=== PATIENT | female | born 1995 | race Caucasian/White ===

== ENCOUNTER 2020-10-25 09:01 | Observation (INO) ==
[2020-10-25] MEDS ORDERED: KETOROLAC TROMETHAMINE 15 MG/ML VIAL IV STA (09:47)
[2020-10-25] MEDS ORDERED: SODIUM CHLORIDE 0.9% 1000ML 1,000 ML IV STA (09:47)
[2020-10-25 09:57] LABS: Basophils # (auto) 0.02 K/uL (0-0.2); Basophils % (auto) 0.2 %; Eosinophils # (auto) 0.01 K/uL (0-0.5); Eosinophils % (auto) 0.1 %; Hematocrit (blood only) 39.4 % (37-47); Immature Granulocytes # (auto) 0.01 K/uL (0.00-0.02); Immature Granulocytes % (auto) 0.1 %; Lymphocytes # (auto) 0.94 K/uL (1.2-3.4); Lymphocytes % (auto) 10.2 %; Mean Corpuscular Hemoglobin 28.7 pg (25-34); Mean Platelet Volume 9.8 fL (7.4-10.4); Monocytes # (auto) 0.39 K/uL (0.11-0.59); Monocytes % (auto) 4.2 %; Neutrophils # (auto) 7.87 K/uL (1.4-6.5); Neutrophils % (auto) 85.2 %; Platelet Count 376 K/uL (130-400); RDW Coefficient of Variation 14.1 % (11.5-14.5); RDW Standard Deviation 44.9 fL (36.4-46.3); Red Blood Count 4.53 M/uL (4.2-5.4); White Blood Count 9.24 K/uL (4.8-10.8)
--- NOTE | 2020-10-25 09:59 | Emergency Department Note ---
Impression & Plan Acute calculous cholecystitis ED Provider Note CHIEF COMPLAINT: Right upper abdominal pain HISTORY OF PRESENTING ILLNESS: This is a 25-year-old female who presents to the emergency department complaining of right upper abdominal pain that started this morning about 3 AM. She states the pain has been constant, sharp and stabbing, radiates to her right middle back, and she rates the pain 9/10. She did try Tylenol and ibuprofen with minimal relief. She states that she had nausea and vomiting with the pain this morning, but this has resolved. She denies any fevers or chills. She notes that she has been having an ongoing issue with right upper abdominal pain for the past 4-5 months, when she was first evaluated for this she states that she was told she has gallstones and was recommended to have surgery for this. She states that she has been waiting on the surgery because she has been trying to lose weight and control her diet to see if this would help. She states that eating fatty foods seems to flareup the pain and last night she had tater tots from [facility], she believes this is what caused her symptoms today. She denies any chest pain, chest tightness, shortness of margaux th, dizziness or syncope. She denies any leg pain or swelling. She denies any history of kidney stones or kidney infections and has not had any urinary symptoms. She denies any diarrhea or constipation. REVIEW OF SYSTEMS: A complete 10 point review of systems was reviewed with the patient with pertinent positives and negatives as per history of present illness. All else were negative. PAST MEDICAL HISTORY: No significant past medical or surgical history SOCIAL HISTORY: Lives at home, she is a [email or web address] student, denies tobacco use, occasional alcohol use, denies drug use ALLERGIES: No known allergy PHYSICAL EXAM: CONSTITUTIONAL: Pleasant and cooperative. Nontoxic-appearing and no acute distress. Mildly dehydrated, but otherwise well appearing and well nourished. HEENT: Normocephalic, atraumatic. Pharynx normal. Tacky mucous membranes. NECK: Supple, full active range of motion without discomfort. RESPIRATORY: Clear to auscultation bilaterally with no wheezing, crackles, rho nchi or stridor. Equal expansion bilaterally. CARDIOVASCULAR: Regular rate and rhythm with no murmurs, rubs or gallops. Normal peripheral perfusion. No edema. GASTROINTESTINAL: Tender to palpation in the right upper quadrant, abdomen is otherwise nontender, soft and nondistended. No palpable masses or HSM. Bowel sounds present in all quadrants. No CVA tenderness bilaterally. MUSCULOSKELETAL: Full range of motion of all joints without discomfort. INTEGUMENTARY: No rash or other significant dermatologic conditions noted. NEUROLOGIC: Alert and oriented X 4 with normal affect. Normal strength and sensation in all 4 extremities. Normal speech. Normal gait observed. ED COURSE AND MEDICAL DECISION MAKING: CC: Patient presenting with complaint of right upper quadrant abdominal pain, nausea and vomiting DIFFERENTIAL DIAGNOSIS: Includes, but not limited to cholecystitis, cholelithiasis, pancreatitis, gastroenteritis, gastritis, peptic ulcer disease, GERD, IBD, IBS, small bowel obstruction, among others. INTERPRETATION OF LABS: No leukocytosis, no anemia, normal platelets, no signifi cant electrolyte abnormalities, normal renal function, normal liver enzymes and lipase. UA appears to be a contaminated specimen, negative for bacteriuria. Urine negative. MEDICATION RECONCILIATION: I attest that I have personally reviewed the patient's current medication list. INITIAL VITAL SIGNS REVIEW: I reviewed the patient's initial vital signs and interpret them as follows: T: Afebrile; BP: Normotensive; HR: Within normal limits; RR: Within normal limits; Pulse Ox: Within normal limits on room air. MDM SUMMARY: Patient was evaluated at bedside, history and physical exam performed. Patient is alert and oriented, in no acute distress, resting calmly in stretcher. Patient is afebrile and nontoxic-appearing, but does appear slightly uncomfortable from pain. Appears mildly dehydrated. Tenderness to palpation in the right upper quadrant abdomen, no acute abdomen. She reports her nausea and vomiting are currently resolved she declined anything for nausea at this time. Cardiac monitoring: An order was placed for continuous cardiac monitoring. The monitor shows a rate of 74 bpm with normal sinus rhythm. Orders were placed for labs, UA and urine , IV fluid bolus for hydration, IV Toradol for pain, ultrasound of the gallbladder to evaluate for right upper quadrant pain. Patient discussed with Dr. Guillen, who agrees with my assessment, plan, and disposition. Labs and imaging reviewed as above, no leukocytosis, no electrolyte abnormalities, liver enzymes and lipase are normal. Ultrasound reviewed and is notable for cholelithiasis with findings suspicious for acute cholecystitis. I spoke on the phone with Dr. Yap, general surgery, who agreed to evaluate the patient. Patient reassessed multiple times throughout ED stay, she has remained hemodynamically stable and afebrile and her pain is somewhat improved after the Toradol. Her nausea and vomiting have remained resolved. The patient was updated on all results and plan for admission and plan for the OR, all questions were answered to the best of my ability and the patient was comfortable with this plan. The patient was stable at time of admission/transfer to the OR. The chart was completed utilizing [employer] Speech voice recognition software. Grammatical errors, random word insertions, pronoun errors, and incomplete sentences are an occasional consequence of this system due to software limitations, ambient noise, and hardware issues. Any formal questions or concerns about the content, text, or information contained within the body of this dictation should be directly addressed to the nurse practitioner for clarification. Past Med/Surg History Medical History (Updated 10/25/20 @ 15:37 by CELINE Osborne) Acute calculous cholecystitis Obesity (BMI 30.0-34.9) Social History Smoking Status: Never smoker Preferred Language: Mosotho Feels Safe at Home: Yes Allergies Allergies Allergy/AdvReac Type Severity Reaction Status Date / Time No Known Allergies Allergy Unverified 10/25/20 11:24 Home Meds Home Medications Medication Instructions Recorded Confirmed ibuprofen 600 mg PO Q6H PRN 10/25/20 10/25/20 ibuprofen [Advil] 400 mg PO Q6H PRN 10/25/20 10/25/20 methylphenidate HCl [Concerta] 54 mg PO QAM 10/25/20 10/25/20 Results & Data (ED) Vital Signs Vital Signs - 24 hr 10/25/20 09:07 10/25/20 11:57 10/25/20 13:50 Temperature 36.2 C L Temperature Source Temporal Artery Scan Pulse Rate 75 Pulse Rate [Right Finger] 75 63 Pulse Rhythm Regular Pulse Strength Normal Respiratory Rate 20 14 20 Respiratory Effort / Characteristics Non-Labored Spontaneous Non-Labored Spontaneous Non-Labored Spontaneous Respiratory Depth Normal Normal Normal Respiratory Pattern Regular Regular Regular Blood Pressure 129/91 Blood Pressure [Right Arm] 120/84 126/96 Blood Pressure Mean 103 Blood Pressure Mean [Right Arm] 96 106 Blood Pressure Position Sitting Pulse Oximetry 98 95 98 Oxygen Delivery Method Room Air Room Air Room Air Sepsis Recent Fever Within 48 Hours No Sepsis New/Unexplained Change in Mental Status No Sepsis Action Taken by Nursing No Action Required Laboratory Data Result diagrams: 10/25/20 09:20 10/25/20 09:20 Lab Results 10/25/20 10/25/20 10/25/20 Range/Units 09:20 09:20 09:20 WBC 9.24 (4.8-10.8) K/uL RBC 4.53 (4.2-5.4) M/uL Hgb 13.0 (12.0-16.0) g/dL Hct 39.4 (37-47) % MCV 87.0 (80-100) fL MCH 28.7 (25-34) pg MCHC 33.0 (32-36) g/dL RDW Std Deviation 44.9 (36.4-46.3) fL RDW Coeff of Emerson 14.1 (11.5-14.5) % Plt Count 376 (130-400) K/uL MPV 9.8 (7.4-10.4) fL Immature Gran % (Auto) 0.1 % Neut % (Auto) 85.2 % Lymph % (Auto) 10.2 % Finney % (Auto) 4.2 % Eos % (Auto) 0.1 % Baso % (Auto) 0.2 % Neut # (Auto) 7.87 H (1.4-6.5) K/uL Lymph # (Auto) 0.94 L (1.2-3.4) K/uL Finney # (Auto) 0.39 (0.11-0.59) K/uL Eos # (Auto) 0.01 (0-0.5) K/uL Baso # (Auto) 0.02 (0-0.2) K/uL Immature Gran # (Auto) 0.01 (0.00-0.02) K/uL Sodium 138 (136-145) mmol/L Potassium 3.6 (3.5-5.1) mmol/L Chloride 108 H (98-107) mmol/L Carbon Dioxide 24 (21-32) mmol/L Anion Gap 6.0 (3-11) BUN 7 (7-18) mg/dl Creatinine 0.69 (0.6-1.2) mg/dl Est Cr Clr Drug Dosing 129.5 ml/min Est GFR ( Amer) 141.2 Est GFR (Non-Af Amer) 121.8 BUN/Creatinine Ratio 10.1 (10-20) Glucose 113 H (70-99) mg/dl Calcium 8.2 L (8.5-10.1) mg/dl Total Bilirubin 0.3 (0.2-1) mg/dl AST 20 (15-37) U/L ALT 51 (12-78) U/L Alkaline Phosphatase 92 (45-117) U/L Total Protein 7.5 (6.4-8.2) gm/dl Albumin 3.8 (3.4-5.0) gm/dl Globulin 3.7 (2.5-4.0) gm/dl Albumin/Globulin Ratio 1.0 (0.9-2) Lipase 96 (73-393) U/L Urine Color Yellow Urine Appearance Turbid A (Clear) Urine pH >= 9.0 H (4.5-7.5) Ur Specific [place] 1.021 (1.000-1.030) Urine Protein 1+ H (Negative) Urine Glucose (UA) Negative (Negative) Urine Ketones 1+ H (Negative) Urine Blood Negative (Negative) Urine Nitrite Negative (Negative) Urine Bilirubin Negative (Negative) Urine Urobilinogen Negative (Negative) Ur Leukocyte Esterase Trace H (Negative) Urine WBC (Auto) 5-10 H (0-5) /hpf Urine RBC (Auto) 10-30 H (0-4) /hpf U Hyaline Cast (Auto) 1-5 (0-5) /lpf U Epithel Cells (Auto) >30 H (0-5) /lpf Urine Bacteria (Auto) Negative (Negative) POC Ur Test (NEG) COVID-19 Eval Order SARS-CoV-2 (PCR) (Negative) Influenza Type A (PCR) (Neg) Influenza Type B (PCR) (Neg) RSV (RT-PCR) (Neg) 10/25/20 10/25/20 10/25/20 Range/Units 10:27 12:53 12:53 WBC (4.8-10.8) K/uL RBC (4.2-5.4) M/uL Hgb (12.0-16.0) g/dL Hct (37-47) % MCV (80-100) fL MCH (25-34) pg MCHC (32-36) g/dL RDW Std Deviation (36.4-46.3) fL RDW Coeff of Emerson (11.5-14.5) % Plt Count (130-400) K/uL MPV (7.4-10.4) fL Immature Gran % (Auto) % Neut % (Auto) % Lymph % (Auto) % Finney % (Auto) % Eos % (Auto) % Baso % (Auto) % Neut # (Auto) (1.4-6.5) K/uL Lymph # (Auto) (1.2-3.4) K/uL Finney # (Auto) (0.11-0.59) K/uL Eos # (Auto) (0-0.5) K/uL Baso # (Auto) (0-0.2) K/uL Immature Gran # (Auto) (0.00-0.02) K/uL Sodium (136-145) mmol/L Potassium (3.5-5.1) mmol/L Chloride (98-107) mmol/L Carbon Dioxide (21-32) mmol/L Anion Gap (3-11) BUN (7-18) mg/dl Creatinine (0.6-1.2) mg/dl Est Cr Clr Drug Dosing ml/min Est GFR ( Amer) Est GFR (Non-Af Amer) BUN/Creatinine Ratio (10-20) Glucose (70-99) mg/dl Calcium (8.5-10.1) mg/dl Total Bilirubin (0.2-1) mg/dl AST (15-37) U/L ALT (12-78) U/L Alkaline Phosphatase (45-117) U/L Total Protein (6.4-8.2) gm/dl Albumin (3.4-5.0) gm/dl Globulin (2.5-4.0) gm/dl Albumin/Globulin Ratio (0.9-2) Lipase (73-393) U/L Urine Color Urine Appearance (Clear) Urine pH (4.5-7.5) Ur Specific [place] (1.000-1.030) Urine Protein (Negative) Urine Glucose (UA) (Negative) Urine Ketones (Negative) Urine Blood (Negative) Urine Nitrite (Negative) Urine Bilirubin (Negative) Urine Urobilinogen (Negative) Ur Leukocyte Esterase (Negative) Urine WBC (Auto) (0-5) /hpf Urine RBC (Auto) (0-4) /hpf U Hyaline Cast (Auto) (0-5) /lpf U Epithel Cells (Auto) (0-5) /lpf Urine Bacteria (Auto) (Negative) POC Ur Test NEG (NEG) COVID-19 Eval Order CovFluRsv at [facility] SARS-CoV-2 (PCR) NEGATIVE (Negative) Influenza Type A (PCR) Negative (Neg) Influenza Type B (PCR) Negative (Neg) RSV (RT-PCR) Negative (Neg) Administered Medications Discontinued Medications Sodium Chloride (Nss 1000ml) 1,000 mls @ 999 mls/hr IV .Q1H1M STA Stop: 10/25/20 10:47 Last Infusion: 10/25/20 11:12 Dose: 0 mls/hr Documented by: [id number] Admin: 10/25/20 10:03 Dose: 999 mls/hr Documented by: [id number] Cefoxitin Sodium (Mefoxin) 2,000 mg in 60 mls @ 100 mls/hr IV NOW STA Stop: 10/25/20 13:54 Last Infusion: 10/25/20 14:25 Dose: 0 mls/hr Documented by: [id number] Admin: 10/25/20 13:48 Dose: 100 mls/hr Documented by: [id number] Ketorolac Tromethamine (Ketorolac Tromethamine 15 Mg/Ml Vial) 10 mg IV NOW STA Stop: 10/25/20 09:48 Last Admin: 10/25/20 10:03 Dose: 10 mg Documented by: [id number] Imaging Data Radiologist's Impression: Gallbladder Ultrasound 10/25/20 10:45 ULTRASOUND RIGHT UPPER QUADRANT ABDOMEN CLINICAL HISTORY: Right upper quadrant abdominal pain. COMPARISON STUDY: No priors. TECHNIQUE: Real-time, grayscale, and color flow sonography of the right upper quadrant of the abdomen was performed. Images are reviewed in the transverse and longitudinal planes. FINDINGS: Liver: The liver is normal in size and mildly heterogeneous in echotexture. There is no intrahepatic biliary ductal dilatation. The main portal vein is patent. Gallbladder: There are shadowing calcified gallstones. Nonmobile stones are seen in the region of the neck. The gallbladder wall appears thickened and edematous measuring up to 5 mm. No pericholecystic fluid is seen. A sonographic Thurman's sign is reportedly absent. The common bile duct measures up to 0.4 cm in diameter. Pancreas: Visualized portions of the pancreatic head and body are normal in appearance. Right kidney: Survey images of the right kidney demonstrate normal size and echotexture. There is no hydronephrosis. Ascites: None. IMPRESSION: Cholelithiasis with findings suspicious for acute cholecystitis. Clinical and laboratory correlation will be required. ACT 112: Negative or not required by law. Electronically signed by: Hasmukh Desai M.D. 10/25/2020 12:08 PM Discharge Plan Visit Data Chief Complaint: Abdominal Pain Stated Complaint: RIB PAIN ED Provider: Nigel Guillen ED Midlevel Provider: Shantell Suhkla Discharge Problem: Acute calculous cholecystitis Patient Disposition: Being Evaluated by Surgeon Condition: Good Forms Stand Alone Forms: [facility] [employer] Prescriptions Prescriptions: No Action methylphenidate HCl [Concerta] 54 mg Tablet Extended Release 24hr 54 mg PO QAM RF: 0 ibuprofen 200 mg Tablet 600 mg PO Q6H PRN (Reason: Pain) RF: 0 ibuprofen [Advil] 200 mg Tablet 400 mg PO Q6H PRN (Reason: Pain) RF: 0 Referrals Referrals: [place] [Primary Care Provider] -
[2020-10-25 10:04] LABS: Albumin Level 3.8 gm/dl (3.4-5.0); BUN Creatinine Ratio 10.1 (10-20); Calcium 8.2 mg/dl (8.5-10.1); Creatinine Clr Calc Pharmacy 129.5 ml/min; Est GFR (African American) 141.2; Est GFR (Non-African American) 121.8; Potassium 3.6 mmol/L (3.5-5.1)
[2020-10-25 10:07] LABS: Bilirubin,Total 0.3 mg/dl (0.2-1); Globulin 3.7 gm/dl (2.5-4.0); Total Protein 7.5 gm/dl (6.4-8.2)
[2020-10-25 10:11] LABS: Appearance Urine Turbid (Clear); Bacteria Urine Automated Negative (Negative); Bilirubin Urine Negative (Negative); Blood Urine Negative (Negative); Color Urine Yellow; Epithelial Cell Urine Auto >30 /lpf (0-5); Glucose Urine UA Negative (Negative); Ketones Urine 1+ (Negative); Leukocyte Esterase Urine Trace (Negative); Nitrite Urine Negative (Negative); Specific Gravity Urine 1.021 (1.000-1.030); Urobilinogen Urine Negative (Negative); pH Urine >= 9.0 (4.5-7.5)
[2020-10-25 10:18] LABS: Protein Urine 1+ (Negative)
--- NOTE | 2020-10-25 12:10 | Ultrasound Report ---
ULTRASOUND RIGHT UPPER QUADRANT ABDOMEN CLINICAL HISTORY: Right upper quadrant abdominal pain. COMPARISON STUDY: No priors. TECHNIQUE: Real-time, grayscale, and color flow sonography of the right upper quadrant of the abdomen was performed. Images are reviewed in the transverse and longitudinal planes. FINDINGS: Liver: The liver is normal in size and mildly heterogeneous in echotexture. There is no intrahepatic biliary ductal dilatation. The main portal vein is patent. Gallbladder: There are shadowing calcified gallstones. Nonmobile stones are seen in the region of the neck. The gallbladder wall appears thickened and edematous measuring up to 5 mm. No pericholecystic fluid is seen. A sonographic Thurman's sign is reportedly absent. The common bile duct measures up to 0.4 cm in diameter. Pancreas: Visualized portions of the pancreatic head and body are normal in appearance. Right kidney: Survey images of the right kidney demonstrate normal size and echotexture. There is no hydronephrosis. Ascites: None. IMPRESSION: Cholelithiasis with findings suspicious for acute cholecystitis. Clinical and laboratory correlation will be required. ACT 112: Negative or not required by law. Electronically signed by: Hasmukh Desai M.D. 10/25/2020 12:08 PM
--- NOTE | 2020-10-25 12:58 | History & Physical Report ---
Date of Service October 25, 2020 Assessment & Plan (1) Acute calculous cholecystitis: 25-year-old female with cholelithiasis and likely acute cholecystitis Plan for laparoscopic cholecystectomy with possible cholangiogram The risks of the procedure were discussed to include but not limited to bleeding, infection, retained stone, bile leak, damage to surrounding structures including common bile duct, conversion open, need for future more extensive surgery, and the risk of anesthesia Admit for observation postoperatively Cefoxitin preop The diagnosis, details of the procedure and recovery, and plan of care discussed with the patient, all questions were answered, the patient expressed und erstanding and agrees the plan of care as stated (2) Obesity (BMI 30.0-34.9): History of Present Illness Primary Care Provider: [facility] 25-year-old female presents to the emergency department with right upper quadrant abdominal pain that woke her from sleep. She has known gallstones. She had postprandial right upper quadrant pain around the holidays and was diagnosed with gallstones. She was offered surgery at that time but decided on observation with diet management. She ate some tater tots that [employer] last night and the pain woke her from sleep early this morning. Denies any jaundice or acholic stools. No prior abdominal surgeries. Not on any blood thinners. Otherwise healthy, takes meds for ADHD. She is originally from [place] and is about to graduate with a degree in kinesiology from [employer]. Allergies Allergy/AdvReac Type Severity Reaction Status Date / Time No Known Allergies Allergy Unverified 10/25/20 11:24 Home Medications Medication Instructions Recorded Confirmed Type ibuprofen 600 mg PO Q6H PRN 10/25/20 10/25/20 History ibuprofen [Advil] 400 mg PO Q6H PRN 10/25/20 10/25/20 History methylphenidate HCl [Concerta] 54 mg PO QAM 10/25/20 10/25/20 History Past Med/Surg History Medical History (Updated 10/25/20 @ 12:55 by Kaiser Yap DO, FACS) Acute calculous cholecystitis Obesity (BMI 30.0-34.9) Social History Smoking Status: Never smoker Preferred Language: Guamanian Feels Safe at Home: Yes Review of Systems Review of Systems: All systems reviewed & are unremarkable except as noted in HPI & below Physical Exam Constitutional: WD/WN, vitals as above + obese Respiratory: normal respiratory effort, lungs clear to auscultation Cardiovascular: RRR, no murmur, no edema Gastrointestinal (Abdomen): Percussion/Palpation: + abdomen tender (Tender to palpation in the right upper quadrant), abdomen soft and + hepatosplenomegaly; no guarding and abdomen not rigid Results & Data Results & Data ([facility]) Vital Signs (Past 12 Hours) Vital Signs Temp Pulse Pulse Resp BP BP Pulse Ox 10/25/20 11:57 75 14 120/84 95 10/25/20 09:07 36.2 C L 75 20 129/91 98 Laboratory Results Laboratory Results - last 24 hr 10/25/20 10/25/20 10/25/20 09:20 09:20 09:20 WBC 9.24 RBC 4.53 Hgb 13.0 Hct 39.4 MCV 87.0 MCH 28.7 MCHC 33.0 RDW Std Deviation 44.9 RDW Coeff of Emerson 14.1 Plt Count 376 MPV 9.8 Immature Gran % (Auto) 0.1 Neut % (Auto) 85.2 Lymph % (Auto) 10.2 Hart % (Auto) 4.2 Eos % (Auto) 0.1 Baso % (Auto) 0.2 Neut # (Auto) 7.87 H Lymph # (Auto) 0.94 L Hart # (Auto) 0.39 Eos # (Auto) 0.01 Baso # (Auto) 0.02 Immature Gran # (Auto) 0.01 Sodium 138 Potassium 3.6 Chloride 108 H Carbon Dioxide 24 Anion Gap 6.0 BUN 7 Creatinine 0.69 Est Cr Clr Drug Dosing 129.5 Est GFR ( Amer) 141.2 Est GFR (Non-Af Amer) 121.8 BUN/Creatinine Ratio 10.1 Glucose 113 H Calcium 8.2 L Total Bilirubin 0.3 AST 20 ALT 51 Alkaline Phosphatase 92 Total Protein 7.5 Albumin 3.8 Globulin 3.7 Albumin/Globulin Ratio 1.0 Lipase 96 Urine Color Yellow Urine Appearance Turbid A Urine pH >= 9.0 H Ur Specific [place] 1.021 Urine Protein 1+ H Urine Glucose (UA) Negative Urine Ketones 1+ H Urine Blood Negative Urine Nitrite Negative Urine Bilirubin Negative Urine Urobilinogen Negative Ur Leukocyte Esterase Trace H Urine WBC (Auto) 5-10 H Urine RBC (Auto) 10-30 H U Hyaline Cast (Auto) 1-5 U Epithel Cells (Auto) >30 H Urine Bacteria (Auto) Negative POC Ur Test 10/25/20 10:27 WBC RBC Hgb Hct MCV MCH MCHC RDW Std Deviation RDW Coeff of Emerson Plt Count MPV Immature Gran % (Auto) Neut % (Auto) Lymph % (Auto) Hart % (Auto) Eos % (Auto) Baso % (Auto) Neut # (Auto) Lymph # (Auto) Hart # (Auto) Eos # (Auto) Baso # (Auto) Immature Gran # (Auto) Sodium Potassium Chloride Carbon Dioxide Anion Gap BUN Creatinine Est Cr Clr Drug Dosing Est GFR ( Amer) Est GFR (Non-Af Amer) BUN/Creatinine Ratio Glucose Calcium Total Bilirubin AST ALT Alkaline Phosphatase Total Protein Albumin Globulin Albumin/Globulin Ratio Lipase Urine Color Urine Appearance Urine pH Ur Specific [place] Urine Protein Urine Glucose (UA) Urine Ketones Urine Blood Urine Nitrite Urine Bilirubin Urine Urobilinogen Ur Leukocyte Esterase Urine WBC (Auto) Urine RBC (Auto) U Hyaline Cast (Auto) U Epithel Cells (Auto) Urine Bacteria (Auto) POC Ur Test NEG Diagnostic Findings I personally reviewed the ultrasound and agree with the results of cholelithiasis with thickened gallbladder wall indicating possible acute cholecystitis. ULTRASOUND RIGHT UPPER QUADRANT ABDOMEN CLINICAL HISTORY: Right upper quadrant abdominal pain. COMPARISON STUDY: No priors. TECHNIQUE: Real-time, grayscale, and color flow sonography of the right upper quadrant of the abdomen was performed. Images are reviewed in the transverse and longitudinal planes. FINDINGS: Liver: The liver is normal in size and mildly heterogeneous in echotexture. There is no intrahepatic biliary ductal dilatation. The main portal vein is pat ent. Gallbladder: There are shadowing calcified gallstones. Nonmobile stones are seen in the region of the neck. The gallbladder wall appears thickened and edematous measuring up to 5 mm. No pericholecystic fluid is seen. A sonographic Thurman's sign is reportedly absent. The common bile duct measures up to 0.4 cm in diameter. Pancreas: Visualized portions of the pancreatic head and body are normal in appearance. Right kidney: Survey images of the right kidney demonstrate normal size and echotexture. There is no hydronephrosis. Ascites: None. IMPRESSION: Cholelithiasis with findings suspicious for acute cholecystitis. Clinical and laboratory correlation will be required. PG Care Time/CCT Total # of Minutes Spent Total Time Spent with Patient: Total time spent is greater than 50% in coordination of care (as documented) at patient's floor/unit and/or counseling patient: Coding Level of Care Code 50025 OBS Care - Level 2 Diagnoses Acute calculous cholecystitis K80.00 Obesity (BMI 30.0-34.9) E66.9
[2020-10-25] MEDS ORDERED: cefOXitin 2,000 MG/60 ML BAG IV STA (13:19)
[2020-10-25 13:48] LABS: Influenza A virus by PCR Negative (Neg); Influenza B virus by PCR Negative (Neg); RSV by PCR Negative (Neg); SARS CoV2 RNA(COVID-19) InHosp NEGATIVE (Negative)
[2020-10-25] MEDS ORDERED: BUPIVACAINE 0.5 % 5 MG/1 ML MPF 30ML VIAL ONE (15:59)
[2020-10-25] MEDS ORDERED: MIDAZOLAM HCL 1 MG/ML 2ML VIAL ONE (16:06)
[2020-10-25] MEDS ORDERED: fentaNYL citrate 100 MCG/2 ML VIAL ONE ×3 (16:06→17:40)
--- NOTE | 2020-10-25 16:19 | Anesthesiology Consultation ---
Date of Service October 25, 2020 Assessment & Plan (1) Encounter for pre-operative examination: Chart Review Chart Review: Acceptable Risk for Surgery History Surgery Operation Date: 10/25/20 14:00 Proposed Procedures p Laparoscopic Cholecystectomy - Kaiser Yap DO, FACS Height/Weight Height: 5 ft 2 in Weight: 88 kg Allergies Allergy/AdvReac Type Severity Reaction Status Date / Time No Known Allergies Allergy Unverified 10/25/20 11:24 Medications Home Medications Medication Instructions Recorded Confirmed Last Taken ibuprofen 600 mg PO Q6H PRN 10/25/20 10/25/20 10/25/20 03:00 ibuprofen [Advil] 400 mg PO Q6H PRN 10/25/20 10/25/20 10/25/20 08:00 methylphenidate HCl [Concerta] 54 mg PO QAM 10/25/20 10/25/20 10/24/20 NPO Date Last Intake of Fluids: 10/25/20 Time Last Intake of Fluids: 08:00 Last Intake of Fluids Comment: small amount of water this morning Date Last Intake of Solids: 10/24/20 Time Last Intake of Solids: 23:00 Past Medical History Medical History Acute calculous cholecystitis Obesity (BMI 30.0-34.9) Social History Smoking Status: Never smoker Physical Exam Vital Signs Last Vital Signs Temp 36.2 C L 10/25/20 09:07 Pulse 83 10/25/20 16:00 Resp 20 10/25/20 16:00 BP 121/97 10/25/20 16:00 Pulse Ox 99 10/25/20 16:00 Testing Laboratory Results 10/25/20 09:20 10/25/20 09:20 Urine Color Yellow 10/25/20 09:20 Urine Appearance Turbid (Clear) A 10/25/20 09:20 Urine pH >= 9.0 (4.5-7.5) H 10/25/20 09:20 Ur Specific [place] 1.021 (1.000-1.030) 10/25/20 09:20 Urine Protein 1+ (Negative) H 10/25/20 09:20 Urine Glucose (UA) Negative (Negative) 10/25/20 09:20 Urine Ketones 1+ (Negative) H 10/25/20 09:20 Urine Nitrite Negative (Negative) 10/25/20 09:20 Ur Leukocyte Esterase Trace (Negative) H 10/25/20 09:20 Urine WBC (Auto) 5-10 /hpf (0-5) H 10/25/20 09:20 Urine RBC (Auto) 10-30 /hpf (0-4) H 10/25/20 09:20 U Hyaline Cast (Auto) 1-5 /lpf (0-5) 10/25/20 09:20 U Epithel Cells (Auto) >30 /lpf (0-5) H 10/25/20 09:20 Urine Bacteria (Auto) Negative (Negative) 10/25/20 09:20 10/25/20 10:27 POC Ur Test NEG covid negative
[2020-10-25] MEDS ORDERED: LABETALOL HCL IV 5 MG/ML 20ML IV PRN (16:22)
[2020-10-25] MEDS ORDERED: ATROPINE SULFATE 0.1 MG/ML 10ML SYR IV PRN (16:22)
[2020-10-25] MEDS ORDERED: PROMETHAZINE HCL 12.5 MG in SODIUM CHLORIDE 0.9% 50 ML IV PRN (16:22)
[2020-10-25] MEDS ORDERED: MEPERIDINE HCL 25 MG/ML CARP/VIAL IV PRN (16:22)
[2020-10-25] MEDS ORDERED: KETOROLAC 30 MG/ML VIAL IV PRN (16:22)
[2020-10-25] MEDS ORDERED: ONDANSETRON INJ 2 MG/ML 2 ML VIAL IV PRN ×2 (16:22→18:24)
[2020-10-25] MEDS ORDERED: ONDANSETRON INJ 2 MG/ML 2 ML VIAL ONE (16:57)
[2020-10-25] MEDS ORDERED: ROCURONIUM BROMIDE 10 MG/ML 5 ML VIAL IV ONE (16:57)
[2020-10-25] MEDS ORDERED: METOCLOPRAMIDE HCL INJ 5 MG/ML 2 ML VIAL ONE (16:57)
[2020-10-25] MEDS ORDERED: PROPOFOL IV EMULSION 10 MG/ML 20 ML VIAL IV ONE (16:57)
[2020-10-25] MEDS ORDERED: NEOSTIGMINE METHYLSULFATE 5 MG/5 ML SYR ONE (16:57)
[2020-10-25] MEDS ORDERED: GLYCOPYRROLATE 0.2 MG/ML VIAL ONE (16:57)
--- NOTE | 2020-10-25 17:16 | Operative Report ---
PG Post Operative Report Pre & Post Diagnosis Operation Date: 10/25/20 14:00 Pre-Op Diagnosis: Cholecystitis Post-Op Diagnosis: Cholecystitis I identified the patient and participated in the time-out.: Yes Procedure Operation Date: 10/25/20 14:00 Actual Procedures p Laparoscopic Cholecystectomy - Kaiser Yap DO, FACS Surgeon Kaiser Yap DO, FACS [employer] None Estimated Blood Loss 5 Findings Consistent with Post-Op Diagnosis Moderate acute cholecystitis. Critical view of safety obtained, cystic duct and artery doubly clipped and divided. Good hemostasis. Specimens Gallbladder Anesthesia Type General Complications none Disposition Accompanied Patient To Recovery: No Disposition: Recovery Room Indications 25-year-old female with signs and symptoms of acute calculus cholecystitis, plan for laparoscopic cholecystectomy with possible cholangiogram. The risks of the procedure were discussed, all questions were answered, and the patient agreed to proceed with surgery as planned. Description of Procedure The patient was properly identified, consented, and taken to the operating room where she was placed in the supine position. General endotracheal anesthesia was induced. SCDs and a safety belt were placed. Preoperative antibiotics were administered. The patient's abdomen was prepped and draped in the standard sterile fashion. A surgical timeout was performed and all parties were in agreement that this was the correct patient and procedure to be performed and we continued as planned. An incision was made superior and to the left of the umbilicus overlying the rectus muscle and the Veress needle was inserted. Saline drop test confirmed entry into the peritoneum. The abdomen was insufflated with carbon dioxide which the patient tolerated without incident. The abdomen was then entered using the Optiview technique and a 5 mm trocar. The laparoscope was inserted and no damage from initial trocar or Veress needle placement was noted, no gross abnormalities were noted within the 4 quadrants of the abdomen. An 11 mm port was placed in the subxiphoid position and two 5 mm ports were then placed in the right subcostal position. The patient was placed in reverse Trendelenburg position and rotated towards the left. The gallbladder was moderately and acutely inflamed. The dome of the g allbladder was retracted towards the left upper quadrant and the infundibulum was retracted toward the right lower quadrant revealing Calot's triangle. Peritoneal attachments were taken down with electrocautery and blunt dissection. The cystic duct and artery were circumferentially dissected. A window of safety was obtained showing the cystic duct entering the gallbladder with no aberrant structures noted. The cystic duct and artery were doubly clipped and divided. The gallbladder was then lifted off the gallbladder fossa with electrocautery. The gallbladder was placed in an Endo Catch bag and removed through the subxiphoid port site. The right upper quadrant was irrigated and hemostasis was found to be good. 5 mm trochars were removed under direct visualization and the abdomen was allowed to collapse. The subxiphoid port site fascia was closed with 0 Vicryl suture utilizing the Prem-Donnell device prior to removal of the port. The wound was irrigated, and the skin of all ports was closed with 4-0 Monocryl subcuticular sutures. Dermabond was placed over the wounds. The patient was extubated in the operating room and taken to the PACU where she recovered without apparent incident. All sponge, instrument and needle counts were correct at the conclusion of the procedure. The patient tolerated the procedure well. I attest to the content of the Intraoperative Record and any orders documented therein. Any exceptions are noted below.
[2020-10-25] MEDS: fentaNYL citrate 100 MCG/2 ML VIAL IV PRN ×2 (17:40→17:45)
[2020-10-25] MEDS ORDERED: diphenhydrAMINE 50 MG/ML VIAL IV PRN (18:24)
[2020-10-25] MEDS ORDERED: MoRPHine SULFATE 2 MG/ML CARP IV PRN (18:24)
[2020-10-25] MEDS ORDERED: MoRPHine SULFATE 4 MG/ML 1 ML CARP\\VIAL IV PRN (18:24)
[2020-10-25] MEDS ORDERED: oxyCODONE/ACETAMINOPHEN 5mg/325mg TAB PO PRN ×2 (18:24)
--- NOTE | 2020-10-25 18:26 | Anesthesiology Progress Note ---
Date of Service October 25, 2020 Anesthesia Post Procedure Vital Signs Vital Signs: Temp Pulse Pulse Pulse Resp BP BP 10/25/20 18:05 36.8 C 56 L 19 127/87 10/25/20 17:55 60 17 127/91 10/25/20 17:45 59 L 18 128/83 10/25/20 17:35 62 23 133/94 10/25/20 17:28 36.7 C 81 19 133/94 10/25/20 16:00 83 20 121/97 10/25/20 13:50 63 20 126/96 10/25/20 11:57 75 14 120/84 10/25/20 09:07 36.2 C L 75 20 129/91 Pulse Ox 10/25/20 18:05 95 10/25/20 17:55 95 10/25/20 17:45 93 10/25/20 17:35 99 10/25/20 17:28 99 10/25/20 16:00 99 10/25/20 13:50 98 10/25/20 11:57 95 10/25/20 09:07 98 Pain Intensity Right Upper Abdomen: Pain Intensity: 8 Abdomen: Pain Intensity: 6 Transfer of Care Handoff Completed per policy Notes Mental Status: alert / awake / arousable Patient Amnestic to Procedure: Yes Nausea / Vomiting: adequately controlled Pain: adequately controlled Airway Patency, RR, SpO2: stable & adequate BP & HR: stable & adequate Hydration State: stable & adequate Anesthetic Complications: no major complications apparent
[2020-10-25] MEDS: LACTATED RINGER'S 1,000 ML IV SCH (18:33)
[2020-10-25] MEDS: KETOROLAC TROMETHAMINE 15 MG/ML VIAL IV SCH (19:04)
[2020-10-26] MEDS: LACTATED RINGER'S 1,000 ML IV SCH (01:34)
[2020-10-26] MEDS: KETOROLAC TROMETHAMINE 15 MG/ML VIAL IV SCH ×2 (01:44→06:17)
[2020-10-26 05:42] LABS: Basophils # (auto) 0.02 K/uL (0-0.2); Basophils % (auto) 0.3 %; Eosinophils # (auto) 0.05 K/uL (0-0.5); Eosinophils % (auto) 0.6 %; Hematocrit (blood only) 36.1 % (37-47); Hemoglobin 11.9 g/dL (12.0-16.0); Immature Granulocytes # (auto) 0.01 K/uL (0.00-0.02); Immature Granulocytes % (auto) 0.1 %; Lymphocytes # (auto) 2.52 K/uL (1.2-3.4); Lymphocytes % (auto) 32.2 %; Mean Corpuscular Hemoglobin 29.2 pg (25-34); Mean Corpuscular Volume 88.7 fL (80-100); Mean Platelet Volume 9.4 fL (7.4-10.4); Monocytes # (auto) 0.65 K/uL (0.11-0.59); Monocytes % (auto) 8.3 %; Neutrophils # (auto) 4.58 K/uL (1.4-6.5); Neutrophils % (auto) 58.5 %; Platelet Count 313 K/uL (130-400); RDW Coefficient of Variation 14.1 % (11.5-14.5); RDW Standard Deviation 46.2 fL (36.4-46.3); Red Blood Count 4.07 M/uL (4.2-5.4); White Blood Count 7.83 K/uL (4.8-10.8)
[2020-10-26 06:20] LABS: Albumin Level 3.2 gm/dl (3.4-5.0); BUN Creatinine Ratio 2.8 (10-20); Calcium 7.8 mg/dl (8.5-10.1); Creatinine Clr Calc Pharmacy 120.8 ml/min; Est GFR (African American) 131.4; Est GFR (Non-African American) 113.4; Potassium 3.2 mmol/L (3.5-5.1)
--- NOTE | 2020-10-26 06:27 | Surgery Progress Note ---
Date of Service October 26, 2020 Assessment & Plan (1) Acute calculous cholecystitis: Postop day #1 cholecystectomy: Continue analgesics Continue antiemetics Patient is tolerating clear liquids we will consider advancing diet Patient tolerates diet advancement will consider discharge home later today Admission and Anticipated Discharge Date Admission Date: October 25, 2020 Supervising Physician Co-Signing Physician Notes Patient seen and examined, labs reviewed, agree with above. POD #1 laparoscopic cholecystectomy. Feels much better than upon arrival. Little sore at incision sites. Pain controlled. Tolerating her breakfast this morning. On exam she is afebrile stable vitals. Abdomen soft, probably tender palpation, incisions with Dermabond in place no evidence of infection. Labs unremarkable. Plan to DC to home. Follow-up with me in 2 weeks. Activity restrictions and wound care instructions reviewed, return precautions given. Subjective She is resting in bed. She denies any nausea vomiting. She is tolerating clear liquids. She denies having a bowel movement or passing flatus since surgery. She notes minor abdominal pain from her surgery. Physical Exam Constitutional: well developed and well nourished; no acute distress Gastrointestinal (Abdomen): Abdomen is soft and nondistended. She has some pain with palpation near her surgical incisions. Bowel sounds are present. Results & Data ([facility]) Vital Signs (Past 12 Hours) Vital Signs Temp Pulse Pulse Resp BP Pulse Ox 10/26/20 02:50 36.9 C 100 H 16 129/82 93 10/25/20 21:15 36.9 C 91 H 16 126/84 93 10/25/20 20:15 36.9 C 83 18 135/87 97 10/25/20 19:15 36.8 C 79 16 134/83 97 10/25/20 18:47 36.7 C 62 16 138/91 96 PG Care Time/CCT Total # of Minutes Spent Total Time Spent with Patient: Total time spent is greater than 50% in coordination of care (as documented) at patient's floor/unit and/or counseling patient: Coding Level of Care Code None Diagnoses Acute calculous cholecystitis K80.00
[2020-10-26 06:29] LABS: Albumin Globulin Ratio 1.1 (0.9-2); Bilirubin,Total 0.5 mg/dl (0.2-1); Globulin 2.9 gm/dl (2.5-4.0); Total Protein 6.1 gm/dl (6.4-8.2)
--- NOTE | 2020-10-28 12:57 | Discharge Summary ---
Date of Service October 28, 2020 Admission HPI Per Admitting Provider 25-year-old female presents to the emergency department with right upper quadrant abdominal pain that woke her from sleep. She has known gallstones. She had postprandial right upper quadrant pain around the holidays and was diagnosed with gallstones. She was offered surgery at that time but decided on observation with diet management. She ate some tater tots that [employer] last night and the pain woke her from sleep early this morning. Denies any jaundice or acholic stools. No prior abdominal surgeries. Not on any blood thinners. Otherwise healthy, takes meds for ADHD. She is originally from [place] and is about to graduate with a degree in kinesiology from [employer]. Principal Diagnosis Acute calculus cholecystitis Discharge Exam Constitutional WD/WN, vitals as above Gastrointestinal (Abdomen) normal bowel sounds, soft, nontender, no hepatosplenomegaly Inspection/Auscultation: + abdominal surgical incision (No infection) Discharge Data Allergies Allergy/AdvReac Type Severity Reaction Status Date / Time No Known Allergies Allergy Unverified 10/25/20 11:24 Consultations 10/25/20 13:59 ED Decision to Admit Stat Procedures Performed Operation Date: 10/25/20 14:00 Actual Procedures p Laparoscopic Cholecystectomy - Kaiser Yap DO, FACS Ordered Studies 10/25/20 10:45 US gallbladder Stat Hospital Course (1) Acute calculous cholecystitis: 25-year-old female presented with signs and symptoms of acute calculus cholecystitis. She was taken to the operating room on 25 October 2020 and underwent uncomplicated laparoscopic cholecystectomy. She was admitted for overnight observation. On the morning of postoperative day #1 she was tolerating a regular diet, her pain was controlled, she was ambulating, and she appeared ready for discharge. She was discharged home with plans to follow-up with me in 2 weeks. She was given wound care instructions, activity restrictions, and return precautions. Total Time Total Time Spent Total Time Spent (In Minutes): 30 Discharge Plan Discharge Items Patient Disposition: Home - Self-Care Reason For Visit: CHOLECYSTITIS S/P CHOLECYSTECTOMY Discharge Diagnosis: Cholecystitis Condition on Discharge: Good Activity: As commented below Activity Comment: Walk daily Lifting: No more than 10 pounds Bathing: May shower/bathe in 3 days Bathing Comment: No tub baths Driving/Machine Use: When cleared by your surgeon Non-emergency contact: Surgeon Call non-emergency contact if: you have any medication questions Follow-up/Referrals: Kaiser Yap, BARBARA MUÑOZ [Physician] - 11/10/20 11:15 am (Call office for an appointment in 1-2 weeks) [facility] [Primary Care Provider] - Diet: Regular Addtl Attending Provider Instructions: Call office with questions Pending Studies at Discharge: No Stand-Alone Forms: [facility], Opioid Pain Management, Smoking Cessation Medications and DC Order Prescriptions: New acetaminophen 325 mg capsule 650 mg PO Q6H PRN (Reason: fever or pain) Qty: 30 RF: 0 oxycodone 5 mg capsule 5 mg PO Q6H PRN (Reason: pain) Qty: 12 RF: 0 Continued methylphenidate HCl [Concerta] 54 mg Tablet Extended Release 24hr 54 mg PO QAM RF: 0 ibuprofen 200 mg Tablet 600 mg PO Q6H PRN (Reason: Pain) RF: 0 ibuprofen [Advil] 200 mg Tablet 400 mg PO Q6H PRN (Reason: Pain) RF: 0 Discharge Orders: Discharge Order (Routine); Ordered 10/26/20 Ordered By: Shemar Wolfe/Other Patient Handouts: Healthy Eating on the Go Admission Data Admit Date/Time: 10/25/20 17:20 Attending Provider: Kaiser Yap Admit Provider: Kaiser Yap Primary Care Provider: [facility] Other Providers: Kaiser Yap Other Interventions: Discharge Summary Assessment (RN) Last Done: 10/26/20 10:00 Coding Level of Care Code 13086 OBS Care - Discharge Diagnoses Acute calculous cholecystitis K80.00
== END 2020-10-26 12:03 | disposition home or self-care (01) ==
LOC: ED 09:01 → 3E 16:10 → OR 16:10